=== PATIENT | female | born 2000 | race Caucasian/White ===

== ENCOUNTER 2021-11-01 19:27 | Emergency (ER) | payer MEDICAID ==
[~2021-11-01] VITALS: Ht 162.6 cm; Wt 52.2 kg
[2021-11-01 19:33] VITALS: BP_SYST 143
[2021-11-01] MEDS ORDERED: BACITRACIN 1 GM OINT TP ONE (20:00)
[2021-11-01] MEDS ORDERED: LIDOCAINE/EPI 1% 1:100000 20 ML VIAL INJ ONE (20:00)
--- NOTE | 2021-11-01 20:13 | NUR ---
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 PT REPORTS HAVING DIFFICULTY WALKING AND EXPERIENCING PAIN 10/10. MD AT THE BEDSIDE FOR EVALUATION, RN AND MOTHER PRESENT DURING EXAMINATION. PT DENIES ANY OTHER HEALTH HISTORY.
[2021-11-01] MEDS ORDERED: ED NON STOCK ORDER 1 EA MISC IV ONE (21:00)
[2021-11-01] MEDS ORDERED: KETAMINE HCL 500 MG/10 ML VIAL ONE (21:13)
--- NOTE | 2021-11-01 21:18 | NUR ---
O PT VERBALIZED UNTOLERABLE PAIN 10/10 OF THE LABIA WITH BATHOLIN'S CYST. MD EXPLAINED PROCEDURE OF ASPIRATION VS INCISION AND DRAINAGE AND PT AND MOTHER WERE EXPLAINED THE BENEFITES VS THE RISK OF MODERATE SEDATION . ALL QUESTIONS ANSWEREDBY MD. PT AND MOTHER VERBALIZED UNDERSTANDING. OBTAINED SIGNED CONSENT FOR MODERATE SEDATION DOCUMENT SIGN BY PT MOTHER, RN WITNESSED AND SIGNED,ALSO SIGNED BY MD BERYL.
--- NOTE | 2021-11-01 21:18 | NUR ---
PT WAS POSITIONED APPROPRIATELY WITH NASAL CANNULA IN PLACE AT 3L/MIN. PREPROCEDURE TIMEOUT PERFORMED TO VERIFY SITE. PRESENT IS NATALI ELIZALDE, RT BERYL GILES MD. PT VITALS STABLE, AND DOCUMENTED. PT ADMINISTERED KETAMIN 100MG / 2ML BY MD BERYL VIA IV FOR SEDATION. PT AREA WAS PREPPED IN STERILE FASHION. PT LEFT SIDED LABIA CLEANED AND MD ADMINISTERED LIDOCAINE 1% WITH EPI FOR LOCAL ANESTHETIC. MD CORDOBA USED 18 G NEEDLE TO ASPIRATE A MODERATE AMOUNT OF PURULENT THICK LIQUID FROM THE INFECTED SWOLLEN SITE. LABIA WAS NOT PACKED WITH GAUZE. PT AWAKE IMMEDIATLEY AFTER PROCEDURE. PLACED IN HIGH APK'S POSITION. PT TOLERATED PROCEDURE WELL. RT AND RN REMAINED AT THE BEDSIDE. WILL MONITOR CLOSELY.
--- NOTE | 2021-11-01 21:22 | NUR ---
PT AWAKE AND VITAL SIGNS HR 161 TACHYCARDIA, AND ELEVATED BLOOD PRESSURE AT 1424/95, MD AWARE. RT AT THE BEDSIDE WITH RN FOR CLOSE MONITORING.
[2021-11-01] MEDS ORDERED: HYDR-3917 PO (21:27)
[2021-11-01] MEDS ORDERED: IBUP-1969 PO (21:27)
[2021-11-01] MEDS ORDERED: CLIN-142 PO (21:27)
[2021-11-01] MEDS ORDERED: CLINDAMYCIN 600 MG in D5W 50 ML IV ONE (21:30)
[2021-11-01] MEDS ORDERED: IBUPROFEN 600 MG TABLET PO ONE (21:30)
[2021-11-01] MEDS ORDERED: HYDROcodone/ACETAMIN 5-325 MG TAB (NORCO/ VICODIN) PO ONE (21:30)
--- NOTE | 2021-11-01 21:44 | NUR ---
pt body temp elevated at 101.2, md armstrong notified. verbal order for acetaminophen 1000mg PO. order carried out.
[2021-11-01] MEDS ORDERED: ACETAMINOPHEN 500 MG TABLET ONE (21:55)
[2021-11-01] MEDS ORDERED: ACETAMINOPHEN 500 MG TABLET PO ONE (22:00)
[2021-11-01] MEDS ORDERED: CLINDAMYCIN 600 mg/50mL D5W 50 ML IV ONE (22:13)
[2021-11-01 22:53] VITALS: BP_SYST 106
--- NOTE | 2021-11-01 23:09 | NUR ---
PT IV REMOVED, CATHTER INTACT. CLEAN CRISTOFER APPLIED TO SITE. PT TOLERATED WELL. PT ALERT, AWAKE ORIENTED. PT AND MOTHER PROVIDED WITH HOMECARE INSTRUCTIONS AND ENCOURAGED TO FOLLW UP WITH OBGYN FOR RE EVALUATION OF LEFT SIDED LABIA AFTER ASPIRATION PRECEDURE. PT ENCOUARGED TO PERFORM SITZ BATHS AT HOME AND T KEEP SITE CLEAN AND DRY. PT AND MOTHER VERBALIZED UNDERSTANDING. PT TRANSPOTED TO CAR VIA WHEEL CHAIR BY RN.
== END 2021-11-01 23:40 | disposition home or self-care (01) ==
LOC: SED 19:27
DX: N75.0 Cyst of Bartholin's gland (principal)
CPT/HCPCS: 96365; 99152; 99153; 99285; J3490

== ENCOUNTER 2021-11-06 14:30 | Emergency (ER) | payer MEDICAID ==
[~2021-11-06] VITALS: Ht 162.6 cm; Wt 51.7 kg
[~2021-11-06 14:30] MED LIST: CLIN-142 PO; HYDR-3917 PO; IBUP-1969 PO
[2021-11-06 14:48] VITALS: BP_SYST 151
--- NOTE | 2021-11-06 14:55 | NUR ---
Placed in room 6 . Placed on [employer], blood pressure machine and pulse oximeter. To gown for exam. Side rails up.
--- NOTE | 2021-11-06 15:05 | NUR ---
First contact with pt. Pt states that she is here for a cyst that she has had for the past 1.5 years. Pt states " I have control over my urine, I stand and I can not feel when I have to go and so I end up peeing with no control". Pt is AxO x4, GCS 15, resp e/u, S1S2 wnl.
--- NOTE | 2021-11-06 15:10 | NUR ---
ER DR. CORDOBA AT THE BEDSIDE EXAMINING PT
[2021-11-06] MEDS ORDERED: ED NON STOCK ORDER 1 EA MISC IV ONE (15:15)
--- NOTE | 2021-11-06 15:33 | NUR ---
# 20 gauge angiocath placed to Right AC. Use of asceptic technique. Opsite placed over site. Blood return noted. Blood for lab drawn from site. Flushed with 10 cc of normal saline. No evidence of infiltration noted. Patient tolerated well.
[2021-11-06] MEDS ORDERED: KETAMINE HCL 500 MG/10 ML VIAL ONE (15:44)
[2021-11-06] MEDS ORDERED: KETAMINE HCL 500 MG/10 ML VIAL IVP ONE (15:45)
--- NOTE | 2021-11-06 15:46 | NUR ---
AT THE BEDSIDE WITH ER DR. CORDOBA AND RT FOR MODERATE SEDATION.
[2021-11-06] MEDS ORDERED: HYDR-3917 PO (15:57)
--- NOTE | 2021-11-06 15:59 | NUR ---
1546 CONSCIOUS SADATION AT BEDSIDE. PATIENT ON NC 2LPM, SPO2 95-100% DURING PROCEDURE. 1559 SPO2 100%, HR 108. NO RESPIRATORY DISTRESS NOTED.
--- NOTE | 2021-11-06 16:15 | NUR ---
PT IS AWAKE AND ALERT, VSS, NO DISTRESS NOTED, NO C/O PAIN, NO N/V, TALKATIVE
[2021-11-06] MEDS ORDERED: BACITRACIN 1 GM OINT TP ONE ×2 (16:24→16:45)
--- NOTE | 2021-11-06 16:42 | NUR ---
BACITRACIN AND 4X4 GAUZE PLACED OVER INCISION/DRAINAGE SITE PER MD ORDER
--- NOTE | 2021-11-06 17:18 | NUR ---
Patient given written and verbal discharge instructions and verbalizes understanding. ER MD discussed with patient the results and treatment provided. Patient in stable condition. ID arm band removed. IV catheter removed intact and dressing applied, no active bleeding. Rx of NORCO given. Patient educated on pain management and to follow up with PMD. Pain Scale 0/10. Opportunity for questions provided and answered. Medication side effect fact sheet provided.
[2021-11-06 17:19] VITALS: BP_SYST 122
== END 2021-11-06 17:19 | disposition home or self-care (01) ==
LOC: SED 14:30
DX: N75.0 Cyst of Bartholin's gland (principal); Z79.899 Other long term (current) drug therapy
CPT/HCPCS: 99285

== ENCOUNTER 2021-11-06 17:58 | Emergency (ER) | payer MEDICAID ==
[~2021-11-06] VITALS: Ht 162.6 cm; Wt 51.7 kg
[2021-11-06 18:11] VITALS: BP_SYST 114
[2021-11-06] MEDS ORDERED: LIDOCAINE 1% 10 MG/ML, 20 ML MDV INJ ONE (18:30)
--- NOTE | 2021-11-06 18:35 | NUR ---
Patient to ER bed 05 to gown for evaluation. Side rails up.
--- NOTE | 2021-11-06 18:50 | NUR ---
pt presented to er after leaving er earlier today. she accidentley removed suture cath while using bathroom placed by dr armstrong. pt restin in bed comfortably with bed lowered and locked rails up
--- NOTE | 2021-11-06 19:25 | NUR ---
provided change of shift reprt to NATALI Saleh
[2021-11-06 19:29] VITALS: BP_SYST 136
--- NOTE | 2021-11-06 19:30 | NUR ---
Pt DC per MD's order DC instructions and medications given to pt Pt verbalized understandings AOX4 VSS Able to make needs known Pt exited ED in stable state
== END 2021-11-06 19:29 | disposition home or self-care (01) ==
LOC: SED 17:58
DX: N75.0 Cyst of Bartholin's gland (principal); Z48.00 Encounter for change or removal of nonsurgical wound dressing
CPT/HCPCS: 96372; 99283